=== PATIENT | female | born 1965 | race Caucasian/White ===

== ENCOUNTER 2024-10-18 15:32 | Emergency (ER) | payer MEDICAID, OTHER ==
[~2024-10-18] VITALS: Ht 160 cm; Wt 98.0 kg
[2024-10-18 16:09] VITALS: BP 132/83; PULSE 65; RESP 16; O2SAT 98
== END 2024-10-18 18:57 | disposition left against medical advice (07) ==
LOC: ER 15:34
DX: M25.512 Pain in left shoulder (principal); M25.522 Pain in left elbow; M25.571 Pain in right ankle and joints of right foot; M54.2 Cervicalgia; M54.9 Dorsalgia, unspecified; Z53.21 Procedure and treatment not carried out due to patient leaving prior to being seen by health care provider; W01.0XXA Fall on same level from slipping, tripping and stumbling without subsequent striking against object, initial encounter; Y93.89 Activity, other specified; Y92.89 Other specified places as the place of occurrence of the external cause; Y99.8 Other external cause status